=== PATIENT | male | born 1950 | race Caucasian/White ===

== ENCOUNTER → 2022-12-21 | Outpatient (CLI) | payer OTHER, SELFPAY ==
[2022-12-21 15:06] LABS: Absolute Lymphocyte Count 0.87 X10^3/uL (0.83-4.51); Absolute Neutrophil Count 3.6 X10^3/uL (2.0-7.7); Basophil# 0.06 X10^3/uL; Basophil% 1.2 % (0-1); Eosinophil# 0.18 X10^3/uL; Eosinophils% 3.5 % (0-5); Hematocrit 43.2 % (40-54); Hemoglobin 14.4 g/dL (13.0-16.5); Lymphocyte # 0.87 X10^3/ul (0.83-4.51); Mean Corp Hgb Conc 33.3 g/dL (32-36); Mean Corpuscular Hgb 31.9 pg (27.0-32.0); Mean Corpuscular Volume 95.6 fL (80-94); Mean Platelet Vol. 11.2 fl (6.2-12.0); Monocyte# 0.41 X10^3/uL; NRBC Flagged by Analyzer 0 % (0-5); Neutrophil # 3.59 X10^3/uL (2.7-7.7); Neutrophil % 69.9 % (47-70); Platelet Count 142 K/mm3 (150-450); RBC Distribution Width CV 13.9 % (11.6-14.6); RBC Distribution Width SD 48.4 fl (35.1-43.9); Red Blood Count 4.52 M/mm3 (4.6-6.2); White Blood Count 5.1 K/mm3 (4.4-11.0)
[2022-12-21 15:25] LABS: ALB/GLOB Ratio 0.9 RATIO (0.9-2.4); AST(SGOT) 18 U/L (15-37); Alanine Aminotransfer ALT/SGPT 14 U/L (16-61); Albumin, Serum 3.8 g/dL (3.2-5.0); Alkaline Phosphatase 80 U/L (45-117); Anion Gap 11 (5-15); BUN 10 mg/dL (7-18); Calcium,Total 9.5 mg/dL (8.5-10.1); Chloride 98 mmol/L (98-107); Creatinine, Serum 1.11 mg/dL (0.70-1.30); EST Glomerular Filtration Rate 69 mL/min (>60); Est Glom Filt Rate - Afr Amer 83 mL/min (>60); Globulin 4.1 g/dL (2.2-4.2); Glucose 101 mg/dL (74-106); Potassium 3.9 mmol/L (3.5-5.1); Protein, Total 7.9 g/dL (6.4-8.2); Sodium Level 133 mmol/L (136-145); Vitamin D,25 Hydroxy 55.9 ng/mL
[2022-12-21 15:33] LABS: Hemoglobin A1c 5.2 % (3.8-5.6)
== END | disposition home or self-care (01) ==
LOC: PAVLAB 14:35
PROVIDERS: Referring Provider Surgery; Visit Provider Surgery
DX: K92.1 Melena (principal); I10 Essential (primary) hypertension
CPT/HCPCS: 36415; 80053; 82306; 83036; 85025

== ENCOUNTER 2023-01-26 07:32 | Day surgery (SDC) | payer OTHER, SELFPAY ==
--- NOTE | 2023-01-26 07:46 | PCM.HP.BLA ---
History and Physical Date of Admission: 01/26/23 Intake Vital Signs 12/21/2312:44 Height 6 ft 1 in Weight: 202 lb BMI 26.6 BP 142/91 H Blood Pressure Location Lt brachial Position Sitting Respiration 17 Pulse 75 Pulse Source Monitor Temp 97.7 F L Temp Source Temporal Pulse Oximetry (%) 95 Oxygen Delivery Method room air Intake Visit Reasons: COLONOSCOPY Chief Complaint: colonoscopy Allergies omeprazole Adverse Reaction (Severe, Verified 12/21/22 13:47) Otherbee stings Allergy (Intermediate, Uncoded 12/21/22 13:47) Swelling Medications ascorbate calcium (vitamin C) 500 mg tablet 500 mg PO DAILY 12/21/22 [History Confirmed 12/21/22] aspirin 325 mg tablet 325 mg PO DAILY 12/21/22 [History Confirmed 12/21/22] carvedilol 25 mg tablet 25 mg PO BID 12/21/22 [History Confirmed 12/21/22] clonidine HCl 0.2 mg tablet 0.2 mg PO QHS 12/21/22 [History Confirmed 12/21/22] gabapentin 300 mg capsule 300 mg PO TID 12/21/22 [History Confirmed 12/21/22] lactulose 20 gram/30 mL oral solution 20 g PO DAILY PRN 12/21/22 [History Confirmed 12/21/22] niacin 750 mg tablet,extended release 750 mg PO QHS 12/21/22 [History Confirmed 12/21/22] probenecid 500 mg tablet 500 mg PO DAILY 12/21/22 [History Confirmed 12/21/22] PFSH Family History (Updated 12/21/22 @ 13:44 by Tammie Dalal) Mother Colon cancer Social History (Updated 12/21/22 @ 13:44 by Tammie Dalal) Smoking Status: Never smoker alcohol intake: never substance use type: does not use HPI HPI HPI: Patient is here due to pencil thin stools and blood in his stool. The patient reports this started after his last colonoscopy which was about 5 months ago. I do not have the reports for this. Patient does not report abdominal pain. He has no family history of colon cancer. ROS General General: No weight change, appetite, fatigue, colon cancer, breast cancer or weakness HEENT HEENT: No difficulty swallowing, eye injury, eye surgery, swollen glands or hoarseness Endo Endocrine: No thyroid disease, diabetes mellitus, thyroid cancer, Hair loss, heat intolerance or cold intolerance Skin Skin: No rash or changing moles Musc Musculoskeletal: Yes arthritis; No back problems, rheumatoid arthritis, gout or joint pain Cardio Cardiovascular: Yes high blood pressure; No murmur, pacemaker, heart disease, atrial fibrillation, heart attack, heart stent, palpitations, shortness of breat with exertion or chest pain Psych Psychiatric: No depression, anxiety or hearing voices Resp Respiratory: No shortness of breath, Yes sleep apnea, No cough, No COPD, No asthma, No emphysema and No wheezing Gastro Gastrointestinal: No abdominal pain, No nausea or vomiting, No diarrhea, No constipation, Yes blood in stool, No acid reflux, No hemorrhoids, No ulcers, No gallbladder problem and No black,tarry stools Christopher Hematologic: No blood thinners, No blood disorders, Yes bleeding, No anemia and No blood clots Neuro Neurologic: No system reviewed and no additional complaints, except as documented, No as per HPI, No abnormal gait, No abnormal hearing, No abnormal movements, No abnormal speech, No behavioral changes, No burning sensations, No confusion, No convulsions, No disequilibrium, No dizziness, No localized weakness, No frequent falls, No headache(s), No lack of coordination, No loss of vision, No memory loss, Yes numbness, No other visual disturbances, No radicular pain, No restless legs, No sensory deficit, No syncope, Yes tingling, No tremor(s), No weakness and No other Exam Const General: cooperative Orientation: alert and oriented x3 HENMT Head: normal to inspection Neck Neck: normal visual inspection and full ROM Chest Chest palpation & inspection: normal inspection of the chest Resp Effort & Inspection: normal respiratory effort Auscultation: clear to auscultation bilaterally Cardio Rate: regular rate Rhythm: regular rhythm GI Inspection: non-distended Palpation: soft and nontender Skin General: no rashes or lesions noted Neuro General: patient alert and patient oriented x3 Extrem General: full ROM Psych Appearance: grossly normal Mental Status: mental status grossly normal Assessment and Plan Assessment and Plan (1) Blood in stool: Status: Acute Plan: Patient reports he has been having pencil thin stools and blood in his stool ever since his colonoscopy which was done at the [facility]. He also reports having his clips in his stool. I would like to obtain the operative report from this procedure. I have also checking some labs for him and I will schedule him for colonoscopy depending on the reports. Girish Hunt MD Pager: [facility] [address] [place] [address], [address] [place] [address] Office: I have examined the patient and the H&P has been reviewed. There are no clinical changes since date of exam.
[2023-01-26 08:02] VITALS: BP 145/104; PULSE 81; RESP 17; TEMP 36.6; O2SAT 94; BMI 25.9
[2023-01-26] MEDS: Lactated Ringers 1,000 ML 15 ML IV (08:02)
[2023-01-26 08:31] VITALS: BP 123/81; BP 145/99; PULSE 71; RESP 16; TEMP 36.2; O2SAT 99
[2023-01-26 08:35] VITALS: BP 138/87; BP 145/99; PULSE 74; RESP 16; O2SAT 100
[2023-01-26 08:40] VITALS: BP 145/81; BP 145/99; PULSE 71; RESP 16; O2SAT 99
--- NOTE | 2023-01-26 08:41 | OP.COLON_ITS ---
Patient Name: Sergio Pedersen Procedure Date: 01/26/2023 7:55 AM Date of : 1950 Age: 72 Procedure: Colonoscopy Indications: Rectal bleeding, Change in stool caliber Providers: Girish Hunt MD Referring MD: [facility] Medicines: Monitored Anesthesia Care Patient Profile: This is a 72 year old male. Refer to note in patient chart for documentation of history and physical. Last Colonoscopy: within the past 3 years. Complications: No immediate complications. Procedure: Pre-Anesthesia Assessment: - Prior to the procedure, a History and Physical was performed, and patient medications and allergies were reviewed. The patient's tolerance of previous anesthesia was also reviewed. The risks and benefits of the procedure and the sedation options and risks were discussed with the patient. All questions were answered, and informed consent was obtained. Prior Anticoagulants: The patient has taken no anticoagulant or antiplatelet agents. After reviewing the risks and benefits, the patient was deemed in satisfactory condition to undergo the procedure. After I obtained informed consent, the scope was passed under direct vision. Throughout the procedure, the patient's blood pressure, pulse, and oxygen saturations were monitored continuously. The Colonoscope was introduced through the anus and advanced to the cecum, identified by appendiceal orifice and ileocecal valve. The colonoscopy was performed without difficulty. The patient tolerated the procedure well. The quality of the bowel preparation was good. The ileocecal valve, appendiceal orifice, and rectum were photographed. Scope In: 8:10:53 AM Scope Withdrawal Time 0 hours 6 minutes 6 seconds Scope Out: 8:26:45 AM Total Procedure Duration Time 0 hours 15 minutes 52 seconds Findings: The entire examined colon appeared normal on direct and retroflexion views. Impression: - The entire examined colon is normal on direct and retroflexion views. - No specimens collected. Recommendation: - Discharge patient to home. - Resume previous diet. - Continue present medications. - Repeat colonoscopy is not recommended due to current age (66 years or older) for screening purposes. Procedure Code(s): --- Professional --- 09352, Colonoscopy, flexible; diagnostic, including collection of specimen(s) by brushing or washing, when performed (separate procedure) Diagnosis Code(s): --- Professional --- K62.5, Hemorrhage of anus and rectum R19.5, Other fecal abnormalities CPT copyright 2021 [employer]. All rights reserved. The codes documented in this report are preliminary and upon meter repair shop supervisor review may be revised to meet current compliance requirements. Girish Hunt MD 01/26/2023 8:40:30 AM This report has been signed electronically. Number of Addenda: 0 Note Initiated On: 01/26/2023 7:55 AM
--- NOTE | 2023-01-26 08:41 | OP.CCLET_ITS ---
01/26/2023 [facility] Re : Colonoscopy procedure for [facility] This procedure was performed on Thursday, January 26, 2023. My impressions and recommendations are as follows: Impressions : - The entire examined colon is normal on direct and retroflexion views. - No specimens collected. Recommendations : - Discharge patient to home. - Resume previous diet. - Continue present medications. - Repeat colonoscopy is not recommended due to current age (66 years or older) for screening purposes. My findings are described in the full procedure note, which is enclosed. If I can be of further assistance, please feel free to contact me at Doctor phone number(s): , Work: . Sincerely, Girish Hunt MD 01/26/2023 8:40:30 AM This report has been signed electronically.
[2023-01-26 08:46] VITALS: BP 141/96; BP 145/99; PULSE 74; RESP 16; TEMP 36.3; O2SAT 98
[2023-01-26 09:00] VITALS: BP 145/99
== END 2023-01-26 09:19 | disposition home or self-care (01) ==
LOC: EN 07:33 → AC 07:35
PROVIDERS: Visit Provider Surgery
PROC: 0DJD8ZZ Inspection of Lower Intestinal Tract, Via Natural or Artificial Opening Endoscopic (ICD-10-PCS; CPT 45378; principal; 2023-01-26 07:55)
DX: K62.5 Hemorrhage of anus and rectum (principal); R19.5 Other fecal abnormalities; I10 Essential (primary) hypertension; G47.30 Sleep apnea, unspecified; Z79.82 Long term (current) use of aspirin; Z79.899 Other long term (current) drug therapy; Z80.0 Family history of malignant neoplasm of digestive organs; Z87.891 Personal history of nicotine dependence
CPT/HCPCS: 45378; J7120; J2405

== ENCOUNTER 2023-02-19 08:29 | Day surgery (SDC) | payer OTHER, SELFPAY ==
--- NOTE | 2023-02-19 | GASB_PTH ---
PATIENT: SHERMAN OVALLE LOC: EN U#:[id number] AGE/SX: 72/M ROOM: RE02/19/[address]: Dr. Girish Hunt MD : 1950 BED: DIS: 02/19/2023 SPEC #: [id number] RECD: 02/19/23 13:37 STATUS: RONAL LOKESH #: [id number] ALISSA: 02/19/23 00:[address]: Girish Hunt DEPT: SURGICAL PATHOLOGY RECD BY: Andrew Hooks ENTERED: 02/22/23 09:27 SP TYPE: Gastric Bx OTHR DR: [facility] Tissues: A - Stomach, NOS B - Gastric mucous membrane Procedures: Special Stain Group II Surgery Specimen Level IV Alcian Blue/PAS (control) HEADER OPERATION: EGD with biopsies PRE-OP DIAGNOSIS: GERD TISSUE SUBMITTED: A - Stomach biopsy for H. pylori and pathology, B - Gastroesophageal junction biopsy MICROSCOPIC DIAGNOSIS A. Gastric mucosa, biopsy: Chronic gastritis. See comment. B. Gastroesophageal junction mucosa, biopsy: Focal changes of reflux. No evidence of goblet cell metaplasia. See comment. AM:shira 02/23/2023 COMMENT A. The results of immunohistochemistry for Helicobacter pylori will be reported separately ([id number]). B. Alcian blue/PAS stain with matched control supports the above diagnosis. MICROSCOPIC DESCRIPTION Slides are reviewed. GROSS DESCRIPTION A - Received in fixative is one container labeled with the patient's name and designated stomach. The specimen consists of multiple irregular fragments of light hayes soft tissue that in aggregate measure 1.5 x 0.2 x 0.1 cm. The specimen is totally submitted in one cassette. B - Received in fixative is one container labeled with the patient's name and designated GE junction. The specimen consists of one irregular fragment of light hayes soft tissue that measures 0.9 x 0.2 x 0.1 cm. The specimen is totally submitted in one cassette. / SJ:rg 02/22/2023 TC:3 CPT: 41784 x2, 17196
[2023-02-19 08:44] VITALS: BP 98/73; PULSE 65; RESP 18; TEMP 36.1; O2SAT 97; BMI 25.9
[2023-02-19] MEDS: Lactated Ringers 1,000 ML 15 ML IV (08:51)
--- NOTE | 2023-02-19 09:20 | PCM.HP.BLA ---
History and Physical Date of Admission: 02/19/23 Intake Vital Signs 01/27/2308:02 02/11/2309:34 Height 6 ft 1 in 6 ft 1 in Respiration 16 Intake Visit Reasons: HEARTBURN Chief Complaint: EGD Delivery Route Driver Required: No Is patient in pain?: No Allergies bee venom protein (honey bee) Allergy (Intermediate, Verified 02/11/23 09:34) Swellingomeprazole Adverse Reaction (Severe, Verified 02/11/23 09:34) Other Medications ascorbate calcium (vitamin C) 500 mg tablet 500 mg PO DAILY 12/21/22 [History Confirmed 02/11/23] aspirin 325 mg tablet 325 mg PO DAILY 12/21/22 [History Confirmed 02/11/23] carvedilol 25 mg tablet 25 mg PO BID 12/21/22 [History Confirmed 02/11/23] clonidine HCl 0.2 mg tablet 0.2 mg PO BID 12/21/22 [History Confirmed 02/11/23] gabapentin 300 mg capsule 600 mg PO TID 12/21/22 [History Confirmed 02/11/23] niacin 750 mg tablet,extended release 500 mg PO BID 12/21/22 [History Confirmed 02/11/23] probenecid 500 mg tablet 500 mg PO BID 12/21/22 [History Confirmed 02/11/23] cholecalciferol (vitamin D3) 25 mcg (1,000 unit) tablet (Vitamin D3) 25 mcg PO DAILY 01/25/23 [History Confirmed 02/11/23] nortriptyline 25 mg capsule 25 mg PO QHS 01/25/23 [History Confirmed 02/11/23] PFSH Medical History CPAP (continuous positive airway pressure) dependence Former smoker Gastric reflux Gout High cholesterol History of echocardiogram History of GI bleed History of hiatal hernia History of irregular heartbeat History of stress test Hypertension Sleep apnea Wears glasses Surgical History History of cardiac catheterization Hx of hernia repair Hx of knee surgery Family History Mother Colon cancer Social History Smoking Status: Former smoker alcohol intake: never substance use type: does not use HPI HPI HPI: Patient is a 72-year-old male. He recently had a colonoscopy which was normal. The patient is here because he believes he needs follow-up EGD. The patient has GERD and has for many years. He says his last EGD was many years and he does not member when but he says he was told to have surveillance. He does not think he had Jiménez's esophagus but does not remember. He also remembers having a hiatal hernia. ROS General General: No weight change, appetite, fatigue, colon cancer, breast cancer or weakness HEENT HEENT: No difficulty swallowing, eye injury, eye surgery, swollen glands or hoarseness Endo Endocrine: No thyroid disease, diabetes mellitus, thyroid cancer, Hair loss, heat intolerance or cold intolerance Skin Skin: No rash or changing moles Musc Musculoskeletal: Yes arthritis; No back problems, rheumatoid arthritis, gout or joint pain Cardio Cardiovascular: Yes high blood pressure; No murmur, pacemaker, heart disease, atrial fibrillation, heart attack, heart stent, palpitations, shortness of breat with exertion or chest pain Psych Psychiatric: No depression, anxiety or hearing voices Resp Respiratory: No shortness of breath, Yes sleep apnea, No cough, No COPD, No asthma, No emphysema and No wheezing Gastro Gastrointestinal: No abdominal pain, No nausea or vomiting, No diarrhea, No constipation, Yes blood in stool, No acid reflux, No hemorrhoids, No ulcers, No gallbladder problem and No black,tarry stools Christopher Hematologic: No blood thinners, No blood disorders, Yes bleeding, No anemia and No blood clots Neuro Neurologic: No system reviewed and no additional complaints, except as documented, No as per HPI, No abnormal gait, No abnormal hearing, No abnormal movements, No abnormal speech, No behavioral changes, No burning sensations, No confusion, No convulsions, No disequilibrium, No dizziness, No localized weakness, No frequent falls, No headache(s), No lack of coordination, No loss of vision, No memory loss, Yes numbness, No other visual disturbances, No radicular pain, No restless legs, No sensory deficit, No syncope, Yes tingling, No tremor(s), No weakness and No other Exam Const General: cooperative Orientation: alert and oriented x3 HENMT Head: normal to inspection Neck Neck: normal visual inspection and full ROM Chest Chest palpation & inspection: normal inspection of the chest Resp Effort & Inspection: normal respiratory effort Auscultation: clear to auscultation bilaterally Cardio Rate: regular rate Rhythm: regular rhythm GI Inspection: non-distended Palpation: soft and nontender Skin General: no rashes or lesions noted Neuro General: patient alert and patient oriented x3 Extrem General: full ROM Psych Appearance: grossly normal Mental Status: mental status grossly normal Assessment and Plan Assessment and Plan (1) GERD (gastroesophageal reflux disease): Status: Acute Plan: Plan for surveillance EGD to evaluate distal esophagus. I explained endoscopy in detail to the patient. I explained the risks including but not limited to stroke or heart attack with anesthesia, perforation of the GI tract, bleeding, infection. I explained that any of these could necessitate further emergency surgery. The patient understands and all questions were answered sufficiently. The patient wishes to proceed with procedure. I asked the patient to hold his aspirin for 5 days. Girish Hunt MD Pager: [facility] [address] [place] [address] [address] [place] [address] Office: I have examined the patient and the H&P has been reviewed. There are no clinical changes since date of exam.
--- NOTE | 2023-02-19 09:30 | IMM_PTH ---
PATIENT: SHERMAN OVALLE LOC: EN U#:[id number] AGE/SX: 72/M ROOM: RE02/19/[address]: Dr. Girish Hunt MD : 1950 BED: DIS: 02/19/2023 SPEC #: [id number] RECD: 02/22/23 13:15 STATUS: RONAL REQ #: [id number] ALISSA: 02/19/23 09:[address]: Girish Hunt DEPT: IMMUNOHISTOCHEMISTRY RECD BY: Alba Montiel ENTERED: 02/22/23 13:16 SP TYPE: IMMUNO OTHR DR: [facility] Tissues: A - Stomach, NOS Procedures: H Pylori (initial) PHYSICIAN & INSTITUTION [place] [address] SPECIMEN INFORMATION: Tissue Source: A - Stomach biopsy Clinical Info: GERD Specimen Number: [id number] CPT code: 87611 METHODOLOGY: Deparaffinized sections of prefer/formalin-fixed tissue or PAP/DQ stained slides are incubated with monoclonal/polyclonal antibodies/oligonucleotide probes. Localization is made via biotin free immunoperoxidase method. Appropriate controls are performed and reacted as expected. Results on target cell population are indicated in the following table: RESULTS: ANTIBODY / CLONE RESULT Block A H Pylori (polyclonal) negative These tests were developed and their performance characteristics determined by [facility]. They may not have been cleared or approved by the U.S. Food and Drug Administration. The FDA has determined that such clearance or approval is not necessary. The above immunohistochemical/dualISH markers are ordered and reviewed by the Pathologist. INTERPRETATION: A. Stomach, biopsy: Negative for Helicobacter pylori organisms. AM:shira 02/23/2023
--- NOTE | 2023-02-19 09:46 | OP.EGD_ITS ---
Patient Name: Sergio Pedersen Procedure Date: 02/19/2023 9:21 AM Date of : 1950 Age: 72 Procedure: Upper GI endoscopy Indications: Gastro-esophageal reflux disease Providers: Girish Hunt MD Medicines: Monitored Anesthesia Care Patient Profile: This is a 72 year old male. Refer to note in patient chart for documentation of history and physical. Complications: No immediate complications. Estimated blood loss: Minimal. Procedure: Pre-Anesthesia Assessment: - Prior to the procedure, a History and Physical was performed, and patient medications and allergies were reviewed. The patient's tolerance of previous anesthesia was also reviewed. The risks and benefits of the procedure and the sedation options and risks were discussed with the patient. All questions were answered, and informed consent was obtained. Prior Anticoagulants: The patient has taken no anticoagulant or antiplatelet agents. After reviewing the risks and benefits, the patient was deemed in satisfactory condition to undergo the procedure. After obtaining informed consent, the endoscope was passed under direct vision. Throughout the procedure, the patient's blood pressure, pulse, and oxygen saturations were monitored continuously. The gastroscope was introduced through the mouth, and advanced to the third part of duodenum. The upper GI endoscopy was accomplished without difficulty. The patient tolerated the procedure well. Scope In: 9:35:28 AM Scope Out: 9:41:10 AM Total Procedure Duration Time 0 hours 5 minutes 42 seconds Findings: The esophagus was normal. The stomach was normal. The examined duodenum was normal. Biopsies were taken with a cold forceps in the gastric antrum for Helicobacter pylori testing. Biopsies were taken with a cold forceps at the gastroesophageal junction for histology. Impression: - Normal esophagus. - Normal stomach. - Normal examined duodenum. - Biopsies were taken with a cold forceps for Helicobacter pylori testing. - Biopsies were taken with a cold forceps for histology at the gastroesophageal junction. Recommendation: - Discharge patient to home. - Resume previous diet. - Continue present medications. Procedure Code(s): --- Professional --- 61495, Esophagogastroduodenoscopy, flexible, transoral; with biopsy, single or multiple Diagnosis Code(s): --- Professional --- K21.9, Gastro-esophageal reflux disease without esophagitis CPT copyright 2021 [employer]. All rights reserved. The codes documented in this report are preliminary and upon certified professional coder review may be revised to meet current compliance requirements. Girish Hunt MD 02/19/2023 9:45:52 AM This report has been signed electronically. Number of Addenda: 0 Note Initiated On: 02/19/2023 9:21 AM
--- NOTE | 2023-02-19 09:46 | OP.CCLET_ITS ---
02/19/2023 [facility] Re : Upper GI endoscopy procedure for [facility] This procedure was performed on Sunday, February 19, 2023. My impressions and recommendations are as follows: Impressions : - Normal esophagus. - Normal stomach. - Normal examined duodenum. - Biopsies were taken with a cold forceps for Helicobacter pylori testing. - Biopsies were taken with a cold forceps for histology at the gastroesophageal junction. Recommendations : - Discharge patient to home. - Resume previous diet. - Continue present medications. My findings are described in the full procedure note, which is enclosed. If I can be of further assistance, please feel free to contact me at Doctor phone number(s): , Work: . Sincerely, Girish Hunt MD 02/19/2023 9:45:52 AM This report has been signed electronically.
[2023-02-19 09:48] VITALS: BP 76/64; BP 98/73; PULSE 69; RESP 16; TEMP 36.2; O2SAT 97
[2023-02-19 09:50] VITALS: BP 82/62; BP 98/73; PULSE 60; RESP 16; O2SAT 95
[2023-02-19 09:54] VITALS: BP 91/71; BP 98/73; PULSE 61; RESP 16; O2SAT 96
[2023-02-19 10:00] VITALS: BP 98/73; BP 99/76; PULSE 61; RESP 16; TEMP 36.1; O2SAT 95
[2023-02-19 10:13] VITALS: BP 98/73
== END 2023-02-19 10:25 | disposition home or self-care (01) ==
LOC: EN 08:30 → AC 08:30
PROVIDERS: Visit Provider Surgery
PROC: 0DJ08ZZ Inspection of Upper Intestinal Tract, Via Natural or Artificial Opening Endoscopic (ICD-10-PCS; CPT 43235; principal; 2023-02-19 09:25)
DX: K29.50 Unspecified chronic gastritis without bleeding (principal); K21.9 Gastro-esophageal reflux disease without esophagitis; I10 Essential (primary) hypertension; G47.30 Sleep apnea, unspecified; Z79.82 Long term (current) use of aspirin; Z79.899 Other long term (current) drug therapy; Z87.891 Personal history of nicotine dependence; Z80.0 Family history of malignant neoplasm of digestive organs
CPT/HCPCS: 43239; 88305; 88313; 88342; J7120; J2405